=== PATIENT | female | born 1970 | race Caucasian/White ===

== ENCOUNTER 2016-10-15 04:29 | Emergency (ER) | payer MEDICARE, OTHER ==
[~2016-10-15 04:29] MED LIST: AMLO10 PO; ASPI81CH CHEW; BACL10TA PO; COMMODE PAIL WI1 MIS; ESCI10TA PO; HOSP BED1; HYDR-3533 PO; HYDR25TA35 PO; ISOS20TA PO; LEVEMIR SQ; LIPI80TA PO; LISI-515 PO; METO-338 PO; NICO14DI TD; NITR0.2D TD; NITR0.4S SL; PLAV75TA29 PO; PREV30TA3 PO; [UNRECOGNIZED DRUG - SUPPLY]
[2016-10-15 04:34] VITALS: BP 171/77; PULSE 91; RESP 16; TEMP 97.9; O2SAT 100
[2016-10-15] MEDS ORDERED: SODIUM CHLOR 0.9% 1000 ML INJ 1,000 ML IV SCH (04:56)
[2016-10-15] MEDS ORDERED: ONDANSETRON HCL 4 MG/2 ML VIAL IVP ONE (05:00)
[2016-10-15] MEDS ORDERED: SODIUM CHLORIDE 0.9% FLUSH 5 ML FLUSH IVF PRN ×2 (05:00→06:45)
[2016-10-15 05:14] LABS: AUTOMATED NEUTROPHIL # 14.7 TH/MM3 (1.8-7.7); BASOPHIL # 0.2 TH/MM3 (0-0.2); BASOPHIL % 0.9 % (0.0-2.0); EOSINOPHIL # 0.2 TH/MM3 (0-0.4); EOSINOPHIL % 1.2 % (0.0-4.0); HEMATOCRIT 41.4 % (35.0-46.0); HEMO FLAGS DIFF FINAL; LYMPH % 11.6 % (9.0-44.0); LYMPHOCYTE # 2.1 TH/MM3 (1.0-4.8); MEAN CORPUSCULAR HEMOGLOBIN 28.2 PG (27.0-34.0); MONO % 4.7 % (0.0-8.0); NEUT % 81.6 % (16.0-70.0); PLATELET COUNT 678 TH/MM3 (150-450); RED BLOOD COUNT 4.99 MIL/MM3 (4.00-5.30); RED CELL DISTRIBUTION WIDTH 14.9 % (11.6-17.2)
--- NOTE | 2016-10-15 05:28 | PD ---
HPI Chief Complaint: GI Complaint Time Seen by Provider: 04:51 Travel History International Travel<30 days: No Contact w/Intl Traveler<30days: No Traveled to known affect area: No History of Present Illness HPI Patient is a 46-year-old female who presents to emergency room with complaints of diarrhea. Patient reports that she was recently moved to hospital after she suffered a stroke, reports that she left the rehabilitation center 2 days ago. She reports that for the past 2 days, she's had diarrhea, reports that she had 3 episodes on day 1 of her symptoms and has had multiple episodes today. Patient denies fevers or chills. Patient denies nausea or vomiting. Patient reports no sick contacts at home. Patient reports that she has not been on any antibiotics. Patient with no abdominal pain at this time. PFSH Past Medical History Hx Anticoagulant Therapy: Yes Arthritis: No Asthma: No Autoimmune Disease: No Anxiety: Yes Depression: No Heart Rhythm Problems: No Cardiovascular Problems: Yes High Cholesterol: Yes Chemotherapy: No Chest Pain: Yes Congestive Heart Failure: No COPD: No Cerebrovascular Accident: Yes (cva x 2) Coronary Artery Disease: Yes Diabetes: Yes Patient Takes Glucophage: No Endocrine: Yes Gastrointestinal Disorders: Yes GERD: Yes Genitourinary: No Hiatal Hernia: No Hypertension: Yes Immune Disorder: No Kidney Stones: Yes Musculoskeletal: No Neurologic: No Psychiatric: Yes (ANXIETY) Reproductive: No Respiratory: No Immunizations Current: Yes Migraines: No Radiation Therapy: No Renal Failure: No Seizures: No Sickle Cell Disease: No Sleep Apnea: No Thyroid Disease: No Ulcer: No ?: Not Past Surgical History Abdominal Surgery: Yes (cholesectomy) AICD: No Arteriovenous Shunt: No Cardiac Surgery: Yes (13 STENTS, Triple Bypass) Cholecystectomy: Yes Coronary Artery Bypass Graft: Yes (TRIPLE BYPASS) Ear Surgery: No Endocrine Surgery: No Eye Surgery: No Genitourinary Surgery: No Gynecologic Surgery: Yes (hysterectomy, 3) Hysterectomy: Yes Insulin Pump: No Joint Replacement: No Oral Surgery: Yes (tonsils) Pacemaker: No Thoracic Surgery: Yes Other Surgery: Yes Social History Alcohol Use: No Tobacco Use: No Substance Use: No Allergies-Medications (Allergen,Severity, Reaction): Coded Allergies: No Known Allergies (Unverified , 10/15/16) Reported Meds & Prescriptions Reported Meds & Active Scripts Active Norvasc (Amlodipine Besylate) 10 Mg Tab 10 Mg PO DAILY Escitalopram (Escitalopram Oxalate) 10 Mg Tab 10 Mg PO DAILY Hydralazine (Hydralazine HCl) 25 Mg Tab 25 Mg PO Q8HR Lortab (Hydrocodone-Acetaminophen) 5-325 Mg Tab 1 Tab PO Q6H PRN Nicotine Patch (Nicotine) 14 Mg/24 Hr Patch 1 Patch TD DAILY Nitro-Dur Patch 24 HR (Nitroglycerin) 0.2 Mg/Hr Patch 1 Patch TD DAILY Levemir Inj (Insulin Detemir) 1,000 unit/ 10 ML Vial 15 Units SQ HS 30 Days Prevacid Solutab ODT (Lansoprazole) 30 Mg Tab 30 Mg PO DAILY Nitrostat SL (Nitroglycerin) 0.4 Mg Subl 0.4 Mg SL Q5M PRN Lopressor (Metoprolol Tartrate) 100 Mg Tab 100 Mg PO BID Plavix (Clopidogrel Bisulfate) 75 Mg Tab 75 Mg PO DAILY Lipitor (Atorvastatin Calcium) 80 Mg Tab 80 Mg PO HS Lisinopril 20 Mg Tab 20 Mg PO BID Aspirin 81 Mg Chew 81 Mg CHEW DAILY Transfer Bench W/Back (Device) 1 Mis Mis 1 Ea .ROUTE DIRECTED Commode With Arms (Device) 1 Mis Mis 1 Ea .ROUTE DIRECTED Hospital Bed - Electric 1 Ea Ea 1 Ea .ROUTE DIRECTED Reported Isosorbide Mononitrate 20 Mg Tab 20 Mg PO BID Take 2 doses 7 hours apart. Review of Systems General / Constitutional: No: Fever Eyes: No: Visual changes HENT: No: Headaches Cardiovascular: No: Chest Pain or Discomfort Respiratory: No: Shortness of Breath Gastrointestinal: Positive: Diarrhea, No: Abdominal Pain Genitourinary: No: Dysuria Musculoskeletal: No: Pain Skin: No Rash Neurologic: No: Weakness Psychiatric: No: Depression Endocrine: No: Polydipsia Hematologic/Lymphatic: No: Easy Bruising Physical Exam Narrative GENERAL: nad, nontoxic SKIN: Warm and dry. HEAD: Atraumatic. Normocephalic. EYES: Pupils equal and round. No scleral icterus. No injection or drainage. ENT: No nasal bleeding or discharge. Mucous membranes pink and moist. NECK: Trachea midline. No JVD. CARDIOVASCULAR: Regular rate and rhythm. No murmur appreciated. RESPIRATORY: No accessory muscle use. Clear to auscultation. Breath sounds equal bilaterally. GASTROINTESTINAL: Abdomen soft, non-tender, nondistended. Hepatic and splenic margins not palpable. MUSCULOSKELETAL: No obvious deformities. No clubbing. No cyanosis. No edema. NEUROLOGICAL: Awake and alert. PSYCHIATRIC: Appropriate mood and affect; insight and judgment normal. Data Data Last Documented VS Vital Signs Date Time Temp Pulse Resp B/P Pulse Ox O2 Delivery O2 Flow Rate FiO2 10/15/16 04:34 97.9 91 16 171/77 100 Room Air Orders Complete Blood Count With Diff (10/15/16 04:56) Comprehensive Metabolic Panel (10/15/16 04:56) Iv Access Insert/Monitor (10/15/16 04:56) Ondansetron Inj (Zofran Inj) (10/15/16 05:00) Sodium Chlor 0.9% 1000 Ml Inj (Ns 1000 M (10/15/16 04:56) Sodium Chloride 0.9% Flush (Ns Flush) (10/15/16 05:00) C Diff Toxin Pcr (10/15/16 04:56) Labs Laboratory Tests Test 10/15/16 05:00 White Blood Count 18.0 TH/MM3 Red Blood Count 4.99 MIL/MM3 Hemoglobin 14.1 GM/DL Hematocrit 41.4 % Mean Corpuscular Volume 83.0 FL Mean Corpuscular Hemoglobin 28.2 PG Mean Corpuscular Hemoglobin 34.0 % Concent Red Cell Distribution Width 14.9 % Platelet Count 678 TH/MM3 Mean Platelet Volume 8.6 FL Neutrophils (%) (Auto) 81.6 % Lymphocytes (%) (Auto) 11.6 % Monocytes (%) (Auto) 4.7 % Eosinophils (%) (Auto) 1.2 % Basophils (%) (Auto) 0.9 % Neutrophils # (Auto) 14.7 TH/MM3 Lymphocytes # (Auto) 2.1 TH/MM3 Monocytes # (Auto) 0.8 TH/MM3 Eosinophils # (Auto) 0.2 TH/MM3 Basophils # (Auto) 0.2 TH/MM3 CBC Comment DIFF FINAL Differential Comment MDM Medical Decision Making Medical Screen Exam Complete: Yes Emergency Medical Condition: Yes Interpretation(s) Vital Signs Date Time Temp Pulse Resp B/P Pulse Ox O2 Delivery O2 Flow Rate FiO2 10/15/16 04:34 97.9 91 16 171/77 100 Room Air Differential Diagnosis c.diff colitis, gastroenteritis, gastritis Narrative Course pt is a 46 year old female who presents to ER with c/o of diarrhea x 2 days. pt has recently been discharged from rehab after suffering from cva pt with no fever/chills. pt with no abdominal pain. plan to place iv and give ivf. will obtain cbc, bmp and c.diff Luanne Mcmahon DO Oct 15, 2016 05:28
[2016-10-15 05:45] LABS: ALT (GPT) 113 U/L (10-53); ANION GAP 7 MEQ/L (5-15); AST (GOT) 67 U/L (15-37); BICARBONATE 27.1 MEQ/L (21.0-32.0); BLOOD UREA NITROGEN 30 MG/DL (7-18); CHLORIDE 107 MEQ/L (98-107); GLOMERULAR FILTRATION RATE 78 ML/MIN (>89); POTASSIUM 4.1 MEQ/L (3.5-5.1); SODIUM (NA) 141 MEQ/L (136-145)
[2016-10-15 05:47] LABS: ALKALINE PHOSPHATASE 229 U/L (45-117); TOTAL BILIRUBIN ADULT 0.4 MG/DL (0.2-1.0)
[2016-10-15 06:23] LABS: C. DIFF EPI 027 PRESUMPTIVE NEGATIVE (NEGATIVE); C. DIFF TOXIN PCR NEGATIVE (NEGATIVE)
--- NOTE | 2016-10-15 07:10 | RADRPT ---
EXAM DATE/TIME: 10/15/2016 06:47 [facility] COMPARISON: No previous studies available for comparison. INDICATIONS : Abdominal pain with diarrhea. ORAL CONTRAST: No oral contrast ingested. RADIATION DOSE: 13.82 CTDIvol (mGy) MEDICAL HISTORY : Renal calculi. Myocardial infarction. Hypertension.Coronary artery disease. SURGICAL HISTORY : Hysterectomy. Cholecystectomy.CABG ENCOUNTER: Initial ACUITY: 1 day PAIN SCALE: 4/10 LOCATION: abdomen TECHNIQUE: Volumetric scanning of the abdomen and pelvis was performed. Using automated exposure control and ad justment of the mA and/or kV according to patient size, radiation dose was kept as low as reasonably achievable to obtain optimal diagnostic quality images. FINDINGS: LOWER LUNGS: The visualized lower lungs are clear. LIVER: Homogeneous density without lesion. There is no dilation of the biliary tree. There has been prior cholecystectomy with clips in the gallbladder fossa. SPLEEN: Normal size without lesion. PANCREAS: Within normal limits. KIDNEYS: Normal in size and shape. There is no mass, stone, or hydronephrosis. There is an 8mm low-density le azael in the right mid kidney with density measurements characteristic of a simple cyst. ADRENAL GLANDS: Within normal limits. VASCULAR: There is no aortic aneurysm. There is mild to moderate atherosclerotic disease. There is coronary art kamla calcification. BOWEL/MESENTERY: The stomach, small bowel, and colon demonstrate no acute abnormality. There is no free intraperitone al air or fluid. In the right lower quadrant there is a metallic structure of uncertain etiology shara uring approximately 15 mm in maximal dimension. It is not clear this is located in the colon, distal ileum, or retroperitoneal fat. ABDOMINAL WALL: Within normal limits. RETROPERITONEUM: There is no lymphadenopathy. BLADDER: No wall thickening or mass. REPRODUCTIVE: Uterus is absent. No adnexal abnormality is seen. INGUINAL: There is no lymphadenopathy or hernia. MUSCULOSKELETAL: There are degenerative changes of the lumbar spine. Patient is post median sternotomy. CONCLUSION: 1. No acute finding is identified on this noncontrast examination. 2. There is a 15 mm metallic structure in the right lower quadrant of uncertain etiology and in an un certain location. There are no findings to indicate bowel obstruction. Gt Roca MD on October 15, 2016 at 7:03 Board Certified Radiologist. This report was verified electronically.
[2016-10-15] MEDS ORDERED: HYDR2.5%T RECTAL (07:47)
[2016-10-15] MEDS ORDERED: METR-1 PO (07:47)
--- NOTE | 2016-10-15 07:47 | PD ---
Physical Exam Date Seen by Provider: Oct 15, 2016 Time Seen by Provider: 07:00 Narrative Case signed out to me at 7 AM awaiting CAT scan, please see Dr. Mcmahon for further information. Laboratory Tests Test 10/15/16 05:00 White Blood Count 18.0 TH/MM3 (4.0-11.0) Platelet Count 678 TH/MM3 (150-450) Neutrophils (%) (Auto) 81.6 % (16.0-70.0) Neutrophils # (Auto) 14.7 TH/MM3 (1.8-7.7) Blood Urea Nitrogen 30 MG/DL (7-18) Estimat Glomerular Filtration 78 ML/MIN (>89) Rate Random Glucose 172 MG/DL (74-106) Aspartate Amino Transf 67 U/L (15-37) (AST/SGOT) Alanine Aminotransferase 113 U/L (10-53) (ALT/SGPT) Alkaline Phosphatase 229 U/L (45-117) Total Protein 10.2 GM/DL (6.4-8.2) Last 24 hours Impressions Abdomen/Pelvis CT 10/15/16 0638 Signed Impressions: Service Date/Time: Saturday, October 15, 2016 06:47 - CONCLUSION: 1. No acute finding is identified on this noncontrast examination. 2. There is a 15 mm metallic structure in the right lower quadrant of uncertain etiology and in an uncertain location. There are no findings to indicate bowel obstruction. Gt Roca MD Lab work to indicate leukocytosis but CAT scan shows no signs of acute intra- abdominal processes. On further discussions with the patient, she admits she has been on antibiotics at the facility. Her C. difficile tox was negative. However, considering her symptoms and we will treat her with Flagyl as a precaution despite negative testing. Patient is also requesting something for her hemorrhoids. Follow-up with primary care physician. Return for any worsening of symptoms as necessary. Questions were answered and the plan was discussed the patient and she states understanding. Data Data Last Documented VS Vital Signs Date Time Temp Pulse Resp B/P Pulse Ox O2 Delivery O2 Flow Rate FiO2 10/15/16 07:05 16 10/15/16 04:34 97.9 91 171/77 100 Room Air Orders Complete Blood Count With Diff (10/15/16 04:56) Comprehensive Metabolic Panel (10/15/16 04:56) Iv Access Insert/Monitor (10/15/16 04:56) Ondansetron Inj (Zofran Inj) (10/15/16 05:00) Sodium Chlor 0.9% 1000 Ml Inj (Ns 1000 M (10/15/16 04:56) Sodium Chloride 0.9% Flush (Ns Flush) (10/15/16 05:00) C Diff Toxin Pcr (10/15/16 04:56) Ct Abd/Pel W/O Iv Contrast (10/15/16 06:38) Ecg Monitoring (10/15/16 06:38) Oximetry (10/15/16 06:38) Sodium Chloride 0.9% Flush (Ns Flush) (10/15/16 06:45) Labs Laboratory Tests Test 10/15/16 10/15/16 05:00 05:20 White Blood Count 18.0 TH/MM3 Red Blood Count 4.99 MIL/MM3 Hemoglobin 14.1 GM/DL Hematocrit 41.4 % Mean Corpuscular Volume 83.0 FL Mean Corpuscular Hemoglobin 28.2 PG Mean Corpuscular Hemoglobin 34.0 % Concent Red Cell Distribution Width 14.9 % Platelet Count 678 TH/MM3 Mean Platelet Volume 8.6 FL Neutrophils (%) (Auto) 81.6 % Lymphocytes (%) (Auto) 11.6 % Monocytes (%) (Auto) 4.7 % Eosinophils (%) (Auto) 1.2 % Basophils (%) (Auto) 0.9 % Neutrophils # (Auto) 14.7 TH/MM3 Lymphocytes # (Auto) 2.1 TH/MM3 Monocytes # (Auto) 0.8 TH/MM3 Eosinophils # (Auto) 0.2 TH/MM3 Basophils # (Auto) 0.2 TH/MM3 CBC Comment DIFF FINAL Differential Comment Sodium Level 141 MEQ/L Potassium Level 4.1 MEQ/L Chloride Level 107 MEQ/L Carbon Dioxide Level 27.1 MEQ/L Anion Gap 7 MEQ/L Blood Urea Nitrogen 30 MG/DL Creatinine 0.79 MG/DL Estimat Glomerular Filtration 78 ML/MIN Rate Random Glucose 172 MG/DL Calcium Level 10.1 MG/DL Total Bilirubin 0.4 MG/DL Aspartate Amino Transf 67 U/L (AST/SGOT) Alanine Aminotransferase 113 U/L (ALT/SGPT) Alkaline Phosphatase 229 U/L Total Protein 10.2 GM/DL Albumin 3.6 GM/DL Stool C. difficile Toxin (PCR) NEGATIVE Stl C. difficile Toxin PRESUMPTIVE Epiderm 027 NEGATIVE MDM Medical Record Reviewed: Yes Supervised Visit with MACIE: No Diagnosis Primary Impression: UNSPECIFIED ABDOMINAL PAIN Med/Other Pt SpecificInfo: Prescription(s) given Scripts Hydrocortisone Rectal (Anusol-Hc Rectal)2.5% Cream1 Applic RECTAL TID #30 GM Ref 0 Prov:Blanca Milian MD 10/15/16 Metronidazole (Flagyl)500 Mg [id number] Mg PO BID 7 Days Ref 0 Prov:Blanca Milian MD 10/15/16 Disposition: 01 DISCHARGE HOME Condition: Stable Blanca Milian MD Oct 15, 2016 07:47
== END 2016-10-15 09:02 | disposition home or self-care (01) ==
LOC: NEPC 04:29
DX: D72.829 Elevated white blood cell count, unspecified (principal); K64.9 Unspecified hemorrhoids; I25.10 Atherosclerotic heart disease of native coronary artery without angina pectoris; I10 Essential (primary) hypertension; Z95.1 Presence of aortocoronary bypass graft
CPT/HCPCS: 74176; 80053; 85025; 87493; 96361; 96374; 99284; J2405; J7030